=== PATIENT | male | born 1950 | race Caucasian/White ===

== ENCOUNTER 2019-07-19 14:04 | Emergency (ER) | payer MEDICARE, BC ==
[2019-07-19] MEDS ORDERED: Aspirin 81 MG Tab.Chew PO ONE (14:41)
[2019-07-19] MEDS ORDERED: Sodium Chloride 0.9% 10 ML Syringe FLUSH PRN (14:41)
[2019-07-19] MEDS ORDERED: Heparin Sodium 5,000 Units/ML Vial IVPUSH ONE (14:42)
[2019-07-19] MEDS ORDERED: Heparin Sodium/D5W 25,000 UNITS/500 ML BAG IV SCH (14:45)
--- NOTE | 2019-07-19 15:01 | EDM.PDOC ---
ED HPI GENERAL MEDICAL PROBLEM - General Chief Complaint: Cardiovascular Problem Stated Complaint: ABNORMAL BLOOD WORK SENT HERE DR ZAPIEN Time Seen by Provider: 07/19/19 14:23 Source of Information: Reports: Patient, Family, Provider History Limitations: Reports: No Limitations - History of Present Illness INITIAL COMMENTS - FREE TEXT/NARRATIVE: The patient presents with chest pain and shortness of breath. He said this has been going on for the past few days. When he is out working he will get more short of breath and then he has been having some chest tightness. He had a positive stress test in 2014 and he had a heart cath by Dr Mcadams. The heart cath showed one-vessel CAD with mild disease in the LAD, higher grade ostial and proximal stenosis of the OM2 which is too small caliber for percutaneous intervention. He was put on statins and something for blood pressure. He quit the statin because he did not like the side effects. He has a little tightness in his upper chest. He has no shortness of breath now. He has no fever, chills , cough, abdominal pain, nausea or vomiting. Onset: Gradual Duration: Day(s): Location: Reports: Chest Quality: Reports: Other (tightness) Severity: Mild Improves with: Reports: None Worsens with: Reports: None Associated Symptoms: Reports: Chest Pain, Shortness of Breath. Denies: Cough, Fever/Chills, Headaches, Nausea/Vomiting Chest Pain Score (Numeric/FACES): 2 - Related Data Allergies Allergy/AdvReac Type Severity Reaction Status Date / Time No Known Allergies Allergy Verified 07/19/19 14:16 Home Meds: Home Meds Losartan [Cozaar] 100 mg PO DAILY 07/19/19 [History] amLODIPine [Norvasc] 5 mg PO DAILY 07/19/19 [History] Past Medical History HEENT History: Reports: Hard of Hearing, Impaired Vision Cardiovascular History: Reports: Hypertension, Other (See Below) Other Cardiovascular History: pt was supposed to have stent placed two years ago but cardiology decided not to Respiratory History: Reports: Sleep Apnea - Past Surgical History GI Surgical History: Reports: Cholecystectomy Social & Family History - Tobacco Use Smoking Status *Q: Never Smoker Second Hand Smoke Exposure: No - Caffeine Use Caffeine Use: Reports: Coffee - Recreational Drug Use Recreational Drug Use: No ED ROS GENERAL - Review of Systems Review Of Systems: See Below Constitutional: Reports: No Symptoms HEENT: Reports: No Symptoms Respiratory: Reports: Shortness of Breath Cardiovascular: Reports: Chest Pain Endocrine: Reports: No Symptoms GI/Abdominal: Reports: No Symptoms : Reports: No Symptoms Musculoskeletal: Reports: No Symptoms Skin: Reports: No Symptoms ED EXAM, GENERAL - Physical Exam Exam: See Below Exam Limited By: No Limitations General Appearance: Alert, No Apparent Distress Ears: Normal External Exam Nose: Normal Inspection Head: Atraumatic, Normocephalic Neck: Normal Inspection Respiratory/Chest: No Respiratory Distress, Lungs Clear, Normal Breath Sounds Cardiovascular: Regular Rate, Rhythm, No Edema, No Murmur GI/Abdominal: Soft, Non-Tender, No Organomegaly, No Mass Back Exam: Normal Inspection Extremities: Normal Inspection EKG INTERPRETATION EKG Date: 07/19/19 Time: 14:42 Rhythm: NSR Rate (Beats/Min): 63 [place]: Normal P-Wave: Present QRS: RBBB ST-T: Normal QT: Normal EKG Interpretation Comments: PVCs Course - Vital Signs Last Recorded V/S: Last Vital Signs Temp 97.3 F 07/19/19 14:12 Pulse 65 07/19/19 14:12 Resp 20 07/19/19 14:12 BP 176/90 H 07/19/19 14:12 Pulse Ox 98 07/19/19 14:12 - Orders/Labs/Meds Orders: Active Orders 24 hr Category Date Time Status Cardiac Monitoring [RC] . DIRECTED Care 07/19/19 14:41 Active EKG Documentation Completion [RC] STAT Care 07/19/19 14:41 Active Peripheral IV Care [RC] . DIRECTED Care 07/19/19 14:42 Active TROPONIN I [CHEM] Stat Lab 07/19/19 14:53 Received Heparin Sodium/D5W [Heparin 25,000 Units in D5W 500 ML] Med 07/19/19 14:45 Active 25,000 units in 500 ml IV TITRATE Sodium Chloride 0.9% [Saline Flush] Med 07/19/19 14:41 Active 10 ml FLUSH ASDIRECTED PRN Peripheral IV Insertion Adult [OM.PC] Stat Oth 07/19/19 14:41 Ordered Medication Orders Heparin Sodium/Dextrose (Heparin 25,000 Units In D5w 500 Ml) 25,000 units in 500 mls @ 20.412 mls/hr IV TITRATE SAILAJA; Protocol Sodium Chloride (Saline Flush) 10 ml FLUSH ASDIRECTED PRN PRN Reason: Keep Vein Open Meds: Medications Generic Name Dose Route Start Last Admin Trade Name Freq PRN Reason Stop Dose Admin Heparin Sodium/Dextrose 25,000 units in 500 mls @ 20.412 mls/hr 07/19/19 14: 45 Heparin 25,000 Units In D5w 500 Ml IV TITRATE SAILAJA Protocol 10 UNITS/KG/HR Sodium Chloride 10 ml 07/19/19 14:41 Saline Flush FLUSH ASDIRECTED PRN Keep Vein Open Discontinued Medications Generic Name Dose Route Start Last Admin Trade Name Freq PRN Reason Stop Dose Admin Aspirin 324 mg 07/19/19 14:41 Aspirin PO 07/19/19 14:42 ONETIME ONE Heparin Sodium (Porcine) 5,000 units 07/19/19 14:42 Heparin Sodium IVPUSH 07/19/19 14:43 .BOLUS ONE - Re-Assessments/Exams Free Text/Narrative Re-Assessment/Exam: 07/19/19 15:08 I ordered an IV saline lock, aspirin, EKG, troponin, heparin bolus and a heparin drip. His EKG shows a NSR RBBB and no acute changes. His troponin from the clinic is 0.322. I called [facility] in [place] and talked with Dr Ratliff the solar systems designer and Dr Koroma the hospitalist. They accepted the patient. Departure - Departure Time of Disposition: 15:20 Disposition: DC/Tfer to Acute Hospital 02 Reason for Transfer *Q: Other Condition: Fair Clinical Impression: Non-STEMI (non-ST elevated myocardial infarction) Referrals: Rafa Zapien MD [Primary Care Provider] - Forms: ED Department Discharge Sepsis Event Note - Evaluation Sepsis Screening Result: No Definite Risk - Focused Exam Vital Signs: Vital Signs Temp Pulse Resp BP Pulse Ox 07/19/19 14:12 97.3 F 65 20 176/90 H 98 Date Exam was Performed: 07/19/19 Time Exam was Performed: 15:02 - My Orders Last 24 Hours: My Active Orders 07/19/19 14:41 Cardiac Monitoring [RC] . DIRECTED EKG Documentation Completion [RC] STAT Sodium Chloride 0.9% [Saline Flush] 10 ml FLUSH ASDIRECTED PRN Peripheral IV Insertion Adult [OM.PC] Stat 07/19/19 14:42 Peripheral IV Care [RC] . DIRECTED 07/19/19 14:45 Heparin Sodium/D5W [Heparin 25,000 Units in D5W 500 ML] 25,000 units in 500 ml IV TITRATE 07/19/19 14:53 TROPONIN I [CHEM] Stat - Assessment/Plan Last 24 Hours: My Active Orders 07/19/19 14:41 Cardiac Monitoring [RC] . DIRECTED EKG Documentation Completion [RC] STAT Sodium Chloride 0.9% [Saline Flush] 10 ml FLUSH ASDIRECTED PRN Peripheral IV Insertion Adult [OM.PC] Stat 07/19/19 14:42 Peripheral IV Care [RC] . DIRECTED 07/19/19 14:45 Heparin Sodium/D5W [Heparin 25,000 Units in D5W 500 ML] 25,000 units in 500 ml IV TITRATE 07/19/19 14:53 TROPONIN I [CHEM] Stat
== END 2019-07-19 15:56 ==
LOC: JD.ED 14:04
DX: I21.4 Non-ST elevation (NSTEMI) myocardial infarction (principal); R79.89 Other specified abnormal findings of blood chemistry; I10 Essential (primary) hypertension; Z79.899 Other long term (current) drug therapy
CPT/HCPCS: 36415; 84484; 93005; 96365; 99285; A9270; J1644